=== PATIENT | female | born 1980 | race American Indian/Alaskan Native ===

== ENCOUNTER 2017-02-11 16:56 | Emergency (ER) | payer BC ==
--- NOTE | 2017-02-11 20:44 | Emergency Department Report ---
<KERI MORROW - Last Filed: 02/12/17 00:55> ED General Adult HPI - General Chief complaint: Back Pain/Injury Stated complaint: ABD PAIN, MENSTRAL Time Seen by Provider: 02/11/17 20:27 - Related Data Previous Rx's Medication Instructions Recorded Last Taken Type Ibuprofen [Motrin] 600 mg PO Q8H PRN #15 tablet 02/11/17 Unknown Rx Allergies Allergy/AdvReac Type Severity Reaction Status Date / Time No Known Allergies Allergy Unverified 02/11/17 17:18 ED Review of Systems ROS: Stated complaint: ABD PAIN, MENSTRAL Other details as noted in HPI ED Past Medical Hx - Medications Home Medications: Home Medications Medication Instructions Recorded Confirmed Last Taken Type Ibuprofen [Motrin] 600 mg PO Q8H PRN #15 tablet 02/11/17 Unknown Rx ED Course Vital Signs 02/11/17 02/12/17 17:18 01:08 Temperature 98.8 F 98.7 F Pulse Rate 84 77 Respiratory 16 17 Rate Blood Pressure 123/42 Blood Pressure 112/63 [Left] O2 Sat by Pulse 100 99 Oximetry ED Medical Decision Making - Lab Data Result diagrams: 02/11/17 20:43 02/11/17 20:43 - Radiology Data Radiology results: image reviewed There is a mass in the cervix measuring 16 mm that could be a fibroid. Critical care attestation.: If time is entered above; I have spent that time in minutes in the direct care of this critically ill patient, excluding procedure time. ED Disposition Clinical Impression: Dysmenorrhea, Fibroid of cervix Disposition: DC- TO HOME OR SELFCARE Condition: Stable Instructions: Dysmenorrhea (ED) Additional Instructions: Follow up with [facility]. Take ibuprofen for pain control. Prescriptions: Ibuprofen [Motrin] 600 mg PO Q8H PRN #15 tablet PRN Reason: Pain Referrals: PRIMARY CARE, [Primary Care Provider] - 3-5 Days PADMA LONDON MD [Staff Physician] - 3-5 Days MADAN THOMAS MD [Staff Physician] - 3-5 Days Time of Disposition: 00:58 Print Language: TURKISH <MADELYNPAULETTEMARYSTEPHANIE M - Last Filed: 02/12/17 11:21> ED General Adult HPI - General Source: patient Mode of arrival: Ambulatory Limitations: No Limitations - History of Present Illness Initial comments: PT c/o painful and heavy cycles for "her whole life" LMP - today. PT states she took 800mg Motrin this morning and it did not help. PT states she actually threw up liquid after taking the medication, which she relates to taking medication on an empty stomach, previous use tolerated. PT states she has never been worked up for this. PT states she has never mentioned it to [facility]. PT states last female annual exam was 1 year ago. But then pt states she never found a doctor after moving here, three years ago. PT reports PMH of anemia. MD Complaint: dysmenorrhea -: Gradual, hour(s) Location: pelvis Consistency: constant Worsens with: medication Associated Symptoms: denies other symptoms. denies: chest pain, fever/chills, shortness of breath Treatments Prior to Arrival: NSAID (this am ) ED Review of Systems Comment: All other systems reviewed and negative Constitutional: denies: chills, fever, malaise Respiratory: denies: shortness of breath Cardiovascular: denies: chest pain, palpitations Gastrointestinal: abdominal pain, nausea, vomiting Genitourinary: denies: dysuria, frequency Musculoskeletal: back pain. denies: arthralgia Neurological: denies: weakness ED Past Medical Hx - Past Medical History Previous Medical History?: No Additional medical history: anemia - Family History Family history: other (anemia ) - Social History Smoking Status: Never Smoker Substance Use Type: None ED Physical Exam - General Limitations: No Limitations General appearance: alert, in no apparent distress - Head Head exam: Present: atraumatic, normocephalic, normal inspection - Eye Eye exam: Present: normal appearance, EOMI. Absent: nystagmus - ENT ENT exam: Present: normal exam, mucous membranes moist, normal external ear exam - Neck Neck exam: Present: normal inspection, full ROM - Respiratory Respiratory exam: Present: normal lung sounds bilaterally. Absent: respiratory distress, chest wall tenderness, accessory muscle use, decreased breath sounds - Cardiovascular Cardiovascular Exam: Present: regular rate, normal rhythm, normal heart sounds - GI/Abdominal GI/Abdominal exam: Present: soft, normal bowel sounds. Absent: distended, tenderness, guarding, rebound - Extremities Exam Extremities exam: Present: normal inspection, full ROM - Back Exam Back exam: Present: normal inspection, full ROM. Absent: tenderness, CVA tenderness (R), CVA tenderness (L), muscle spasm, paraspinal tenderness, vertebral tenderness - Neurological Exam Neurological exam: Present: alert, oriented X3, normal gait - Psychiatric Psychiatric exam: Present: normal affect, normal mood - Skin Skin exam: Present: warm, dry, intact, normal color ED Course - Reevaluation(s) Reevaluation #1: 02/11/17 20:55 PT aware of plan of care. - Pulse Oximetry Interpretation Digit-Finger Initial Pulse Oximetry Readin Actions Taken: none ED Medical Decision Making - Lab Data Result diagrams: 02/11/17 20:43 02/11/17 20:43 Labs 02/11/17 02/11/17 02/11/17 20:43 20:43 22:12 WBC 9.0 RBC 4.56 Hgb 11.9 Hct 37.0 MCV 81 MCH 26 L MCHC 32 RDW 17.7 H Plt Count 337 Lymph % (Auto) 17.6 [place] % (Auto) 6.6 Eos % (Auto) 0.8 Baso % (Auto) 1.0 Lymph # 1.6 [place] # 0.6 Eos # 0.1 Baso # 0.1 Seg Neutrophils % 74.0 H Seg Neutrophils # 6.6 Sodium 138 Potassium 4.2 Chloride 98.8 Carbon Dioxide 22 Anion Gap 21 BUN 10 Creatinine 0.6 L Estimated GFR > 60 BUN/Creatinine Ratio 17 Glucose 91 Calcium 9.3 Total Bilirubin 0.30 AST 15 ALT 11 Alkaline Phosphatase 58 Total Protein 7.9 Albumin 4.2 Albumin/Globulin Ratio 1.1 Urine Color Red Urine Turbidity Cloudy Urine pH 6.0 Ur Specific [place] 1.026 Urine Protein 100 mg/dl Urine Glucose (UA) 50 Urine Ketones 80 Urine Blood Mod Urine Nitrite Neg Ur Reducing Substances Not Reportable Urine Bilirubin Neg Urine Ictotest Not Reportable Urine Urobilinogen < 2.0 Ur Leukocyte Esterase Mod Urine WBC (Auto) > 182.0 H Urine RBC (Auto) > 182.0 Urine Bacteria (Auto) 4+ Urine Mucus 1+ Urine HCG, Qual Negative UA was contaminated with menstrual blood. Will add cath urine culture as pt denies dysuria or frequency - Differential Diagnosis dysmenorrhea, fibroids, uti Critical Care Time: No ED Disposition Is pt being admited?: No Does the pt Need Aspirin: No
[2017-02-11 20:56] LABS: Basophils # (Auto) 0.1 K/mm3 (0.0-0.1); Eosinophils # (Auto) 0.1 K/mm3 (0.0-0.4); Eosinophils % (Auto) 0.8 % (0.0-4.3); Hemoglobin 11.9 gm/dl (10.1-14.3); Lymphocytes # (Auto) 1.6 K/mm3 (1.2-5.4); Lymphocytes % (Auto) 17.6 % (13.4-35.0); Mean Corpuscular HGB Conc 32 % (30-34); Mean Corpuscular Hemoglobin 26 pg (28-32); Mean Corpuscular Volume 81 fl (79-97); Monocytes # (Auto) 0.6 K/mm3 (0.0-0.8); Monocytes % (Auto) 6.6 % (0.0-7.3); Platelet Count 337 K/mm3 (140-440); Red Blood Count 4.56 M/mm3 (3.65-5.03); Red Cell Distribution Width 17.7 % (13.2-15.2)
[2017-02-11 21:15] LABS: Alanine Aminotransferase 11 units/L (7-56); Albumin 4.2 g/dL (3.9-5); BUN/Creatinine Ratio 17; Blood Urea Nitrogen 10 mg/dL (7-17); Calcium 9.3 mg/dL (8.4-10.2); Hemolysis Index 14
[2017-02-11 22:38] LABS: HCG Qualitative,Urine Negative (Negative)
[2017-02-11 22:45] LABS: Bacteria,Urine 4+ /HPF (Negative); Bilirubin,Urine NEG (Negative); Blood,Urine MOD (Negative); Color,Urine Red (Yellow); Mucus,Urine 1+ /HPF; Nitrite,Urine NEG (Negative); RBC,Urine > 182.0 /HPF (0.0-6.0); Urobilinogen,Urine < 2.0 mg/dL (<2.0); WBC,Urine > 182.0 /HPF (0.0-6.0)
--- NOTE | 2017-02-12 00:46 | Ultrasound Report ---
FINAL REPORT PROCEDURE: US PELVIC COMPLETE TECHNIQUE: Real-time transabdominal sonography in multiple planes of pelvis was performed with image documentation. This examination was performed without Doppler. Vascular abnormalities, including ovarian torsion, will not be detectable without Doppler evaluation. CPT 63284 HISTORY: dysmenorrhea, heavy bleeding, hx of anemia COMPARISON: No prior studies are available for comparison. FINDINGS: UTERUS Size: 8 x 4.7 x 5.2 cm. Endometrial thickness: 3.2 mm. Orientation: anteverted. Cervix: There is a mass in the cervix measuring 16 millimeters which could be a fibroid.. Fibroids/masses: None. RIGHT Ovary: 3.1 x 1.9 x 2.3 cm. Appearance: Normal. LEFT Ovary: 3.3 x 2.3 x 3.3 cm. Appearance: Normal. Pelvic fluid: None. Other: None. IMPRESSION: There is a mass in the cervix suggesting a fibroid. The uterus, endometrium and ovaries are otherwise unremarkable. There is no free fluid.
--- NOTE | 2017-02-12 00:47 | Ultrasound Report ---
FINAL REPORT PROCEDURE: US PELVIC COMPLETE TECHNIQUE: Real-time transvaginal sonography in multiple planes of pelvis was performed with image documentation. This examination was performed without Doppler. Vascular abnormalities, including ovarian torsion, will not be detectable without Doppler evaluation. HISTORY: dysmenorrhea, heavy bleeding, hx of anemia COMPARISON: No prior studies are available for comparison. FINDINGS: UTERUS Size: 8 x 4.7 x 5.2 cm. Endometrial thickness: 3.2 mm. Orientation: anteverted. Cervix: There is a mass in the cervix measuring 16 millimeters which could be a fibroid.. Fibroids/masses: None. RIGHT Ovary: 3.1 x 1.9 x 2.3 cm. Appearance: Normal. LEFT Ovary: 3.3 x 2.3 x 3.3 cm. Appearance: Normal. Pelvic fluid: None. Other: None. IMPRESSION: There is a mass in the cervix suggesting a fibroid. The uterus, endometrium and ovaries are otherwise unremarkable. There is no free fluid.
[2017-02-12 01:09] VITALS: BP 112/63
== END 2017-02-12 01:08 | disposition home or self-care (01) ==
LOC: ED 16:56
DX: N94.6 Dysmenorrhea, unspecified (principal); D25.9 Leiomyoma of uterus, unspecified; R10.9 Unspecified abdominal pain; D64.9 Anemia, unspecified
CPT/HCPCS: 36415; 76830; 76856; 80053; 81001; 81025; 85025